=== PATIENT | male | born 1975 | race Caucasian/White ===

== ENCOUNTER 2020-06-19 13:36 | Outpatient (REF) | payer OTHER, SELFPAY | END 2020-06-19 13:37 | disposition home or self-care (01) | LOC: HO.LAB 13:36 | PROVIDERS: Visit Provider Internal Medicine | DX: Z20.828 Contact with and (suspected) exposure to other viral communicable diseases (principal) | CPT/HCPCS: C9803; U0003 ==

== ENCOUNTER 2022-08-14 04:11 | Emergency (ER) | payer OTHER, SELFPAY ==
--- NOTE | ~2022-08-14 | CT_ITS ---
EXAMINATION: CT ABDOMEN AND PELVIS WITH CONTRAST CLINICAL INFORMATION: Abdominal pain COMPARISON: None TECHNIQUE: Multidetector volumetric images were obtained from the superior aspect of the liver through the pubic symphysis following administration 100 mL of Omnipaque 350 intravenous contrast. Sagittal and coronal reformatted images were obtained on the technologist's workstation. Oral contrast: No This CT examination was performed using dose optimization techniques as appropriate, variously including the following: *Automated exposure control *Adjustment of mA and/or kV according to patient size (this includes techniques or standardized protocols for targeted exams where dose is matched to indication/reason for exam; i.e. extremities or head) *Use of iterative reconstruction technique DLP: 893 mGy-cm FINDINGS: LUNG BASES: The visualized lung bases are unremarkable. LIVER, GALLBLADDER, AND BILIARY TREE: The liver is normal in size, shape, and attenuation. No focal hepatic lesion or biliary ductal dilatation is present. The gallbladder is unremarkable with no evidence of radiopaque gallstones, gallbladder wall thickening, or obvious pericholecystic inflammatory changes. PANCREAS: Unremarkable. SPLEEN: Unremarkable. ADRENAL GLANDS: Unremarkable. KIDNEYS AND URETERS: The kidneys are normal in size, shape, and attenuation. No hydronephrosis or hydroureter. Right lower pole 0.4 cm calculus is 10 cm from the posterior axillary line. Additional right lower pole calculus also noted. There are 2 left lower pole calculi measuring up to 0.2 cm, 11 cm from the posterior axillary line. BLADDER: Unremarkable. GASTROINTESTINAL TRACT: The stomach is unremarkable. Normal caliber small bowel. No obstruction. No colonic wall thickening or inflammation. No free air or free fluid. ABDOMINAL WALL: No significant hernia is appreciated. Prior right lower abdominal hernia repair. LYMPH NODES: Normal. VASCULAR: Unremarkable. PELVIC VISCERA: The prostate and seminal vesicles are unremarkable. OSSEOUS STRUCTURES: Unremarkable. CT/CT abdomen pelvis w IV con IMPRESSION: 1. No acute findings in the abdomen or pelvis. No inflammatory changes. 2. Nonobstructing bilateral renal calculi. Fleischner guidelines were followed.
[2022-08-14 04:15] VITALS: BP 192/112; PULSE 95; RESP 20; TEMP 36.3; O2SAT 97; BMI 35.6
[2022-08-14 04:34] LABS: MANUAL DIFF FLAG NO
[2022-08-14 04:36] LABS: Basophils Percent Auto 0.3 % (0-2); Eosinophils Percent Auto 0.5 % (0-4); Hematocrit 47.5 % (42.0-52.0); Hemoglobin 16.2 g/dl (14.0-18.0); Imm Gran Abs Auto 0.02 X10*3/uL (0.00-0.03); Imm Gran Pct Auto 0.3 % (0.0-0.4); Lymphocytes Absolute Auto 1.6 X10*3/uL (1.2-4.9); Lymphocytes Percent Auto 24.5 % (20-40); Mean Corpuscular HGB Conc 34.1 g/dl (31.0-36.0); Mean Corpuscular Hemoglobin 28.3 pg (27.0-33.0); Mean Corpuscular Volume 82.9 fL (80.0-98.0); Mean Platelet Volume 8.9 fL (9.4-12.4); Monocytes Absolute Auto 0.7 X10*3/uL (0.1-1.2); Monocytes Percent Auto 11.1 % (2-11); Neutrophils Absolute Auto 4.2 x10*3/uL (2.0-8.3); Neutrophils Percent Auto 63.3 % (45-73); Platelet Count 211 X10*3/uL (160-400); Red Blood Count 5.73 X10*6/uL (4.60-5.80); Red Cell Distribution Width 13.2 % (11.0-16.0); White Blood Count 6.7 X10*3/uL (4.8-10.8)
[2022-08-14 04:37] LABS: Appearance Urine Clear; Color Urine Yellow; Glucose Urine UA Negative (Negative); Leukocyte Esterase Urine Negative (Negative); Nitrite Urine Negative (Negative); PH 6.5 (5.0-9.0); Specific Gravity - Urine 1.015 (1.005-1.025); UMIC TRIGGER UACC YES; Urine Blood Small (1+) (Negative); Urine Ketones Negative (Negative); Urine Protein Trace mg/dL (Neg-Trace)
[2022-08-14 04:42] LABS: Bacteria Urine None Seen (None Seen); Hyaline Casts Urine 0-2 /LPF (0-2); Squamous Epithelial Cell Urine 0-2 /HPF (0-2); WBC Urine 0-5 /HPF (0-5)
--- OUTSIDE RECORDS SUMMARY | 2022-08-14 04:45 | XMS_ITS ---
:1975 Author Care Team Providers Name Role Phone ADEEL LOU MD Primary Care Provider [phone] [facility] Fiber Optic Technician [phone] BERNARD CARMICHAEL MD General Surgeon [phone] Allergies Code Code System Name Reaction Severity Status Onset NKDA ? Medications Name Status Start Date Stop Date ? ? Afluria Qd 2019- (36 mos up)(PF)60 mcg (15 mcg x4)/0.5 Complet ed ? 07/16/2020 mL IM syringe amoxicillin 875 mg tablet Completed ? 2017 azithromycin 250 mg tablet Completed ? 07/16 Baby Aspirin Completed ? 12/29/2018 1 tab daily orally lisinopril 10 mg-hydrochlorothiazide 12.5 mg tablet Active ? Not available TAKE 1 TABLET BY MOUTH EVERY DAY Mucinex DM 60 mg-1,200 mg tablet,extended release 12 hr Complete d ? 09/17/2017 Take 1 tablet twice a day by oral route for 7 days. multivitamin Active ? Not available 1 tab daily by mouth oseltamivir 75 mg capsule Completed ? 2019 oxycodone 5 mg tablet Completed ? 12/29/2018 Paxlovid 300 mg (150 mg x 2)-100 mg tablets in a dose pack (EUA) Active ? Not available TAKE 3 TABLETS BY MOUTH TWICE A DAY DIRECTED FOR 5 DAYS DIRECTED ON PACKAGE penicillin V potassium 500 mg tablet Completed ? 06/19/2016 Readi-Cat 2 2 % (w/v) oral suspension Completed ? 12/29/2018 Readi-Cat 2 2.1 % (w/v), 2.0 % (w/w) oral suspension Completed ? 12/29/2018 Take 450 mL twice a day by oral route as directed for 1 day. Stool Softener 100 mg capsule Completed ? Vitamin D3 25 mcg (1,000 unit) capsule Active ? Not available Take 1 capsule every day by oral route. Problems Name Status Onset Date Source ? Vitamin D Deficiency Active 06/24/2018 ? Body Mass Index 30+ - Obesity Unknown 06/24/2018 ? Hypercholesterolemia Active 08/01/2018 ? 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 Kidney Stone Active 09/05/2018 ? Body Mass Index 30+ - Obesity Active 07/16/2020 ? Albuminuria Unknown 07/18/2020 ? Increased Liver Function Unknown 07/18/2020 ? 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 Elevated Blood-pressure Reading without Diagnosis of Unknown 02/04/2021 ? Hypertension Essential Hypertension Active 04/15/2021 ? Hypercalcemia Active 04/16/2021 ? Hypercalcemia Unknown ? History Body Mass Index 30+ - Obesity Unknown ? En counter Superficial Thrombophlebitis Unknown ? 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 ? Blood in Urine Unknown ? Encounter Cervical Lymphadenopathy Unknown ? Encount er Procedures Date Name Performed by ? 12/14/2018 [facility] [employer] Hernia Repair Information not av ailable ? Hernia Repair Information not avai lable ? Appendectomy Information not avai lable 07/25/2015 Ultrasound, Renal/bladder [facility] (Ultrasound) [address], [place] [address] (Work Place) 07/28/2018 US, Abdomen [facility] (Ultrasound) [address] [place], [place] [address] (Work Place) 08/26/2018 CT, Abdomen + Pelvis, W/ Contrast Inform ation not available 04/15/2021 Electrocardiogram In-Office Order Internal Use Only DO Not Attach Compendium DO Not Attach Compendium Do Not Delete/merge [id number] Results Lab Results Date Name Specimen Result Interpretation Description Value Range Status Address ? 04/15/2021 Urinalysis, ? Appear/color ? ? F inal [facility] Complete Referenc e Laboratori es: [address], [place] ? ? ? Sp. Christmas 1.018 (1.0 Final [place] 02- Reference .030 Laboratori es: ) [address], [place] ? ? ? Urine pH 7.5 (5.0 Final [facility] -8.0 Reference ) Laboratori es: [address], [place] ? ? ? Urine negative (neg Final [facility] Albumin ) Reference Laboratori es: [address], [place] ? ? ? Urine negative (neg Final [facility] Glucose ) Reference Laboratori es: [address], [place] ? ? ? Urine negative (neg Final [facility] Ketones ) Reference Laboratori es: [address], [place] ? ? ? Urine negative (neg Final [facility] Bilirubin ) Referen ce Laboratori es: [address], [place] ? ? ? Urine negative (neg Final [facility] Hemoglobin ) Refere nce Laboratori es: [address], [place] ? ? ? Urine negative (neg Final [facility] Nitrite ) Reference Laboratori es: [address], [place] ? ? ? Urine negative (neg Final [facility] Leukocyte ) Referen ce Laboratori es: [address], [place] ? ? ? Urobilinogen normal (nor Final [place] mg/dL m) Reference mg/d Laboratori es: L [address], [place] ? ? ? Urine Wbcs <1 /hpf (0-5 Final [facility] ) Reference /hpf Laboratori es: [address], [place] ? ? ? Urine Rbcs 1 /hpf (0-3 Final [facility] ) Reference /hpf Laboratori es: [address], [place] ? ? ? Mucus slight ? Final [facility] /lpf Reference Laboratori es: [address], [place] 04/15/2021 CMP, Serum ? Glucose 96 mg/dL (70- Final [facility] or Plasma 99) Referen ce mg/d Laboratori es: L [address], [place] ? ? ? Bun 11 mg/dL (6-2 Final [facility] 0) Reference mg/d Laboratori es: L [address], [place] ? ? ? Creatinine 0.8 mg/dL (0.7 Final [facility] -1.2 Reference ) Laboratori es: mg/d [address], [place] ? ? ? Sodium 141 mmol/L (133 Final [facility] -145 Reference ) Laboratori es: mmol [address], [place] ? ? ? Potassium 4.4 mmol/L (3.6 Final [facility] -5.2 Reference ) Laboratori es: mmol [address], [place] ? ? ? Chloride 102 mmol/L (98- Final [place] 107) Reference mmol Laboratori es: /L [address], [place] ? ? ? Bicarbonate 29 mmol/L (22- Final [facility] 29) Reference mmol Laboratori es: /L [address], [place] ? ? ? Anion Gap 10 (4-1 Final [facility] 7) Reference Laboratori es: [address], [place] ? ? High Albumin 4.9 gm/dL (3.4 Final [facility] -4.8 Reference ) Laboratori es: gm/d [address], [place] ? ? High Calcium 10.8 mg/dL (8.6 Final [facility] -10. Reference 5) Laboratori es: mg/d [address], [place] ? ? ? Bilirubin,to 0.6 mg/dL (0-1 Final [facility] linda .2) Reference mg/d Laboratori es: L [address], [place] ? ? ? Total 7.8 gm/dL (6.2 Final [facility] Protein -8.2 Reference ) Laboratori es: gm/d [address], [place] ? ? ? Ag Ratio 1.7 ? Final [facility] Reference Laboratori es: [address], [place] ? ? ? Ast 24 U/L (0-4 Final [facility] 0) Reference U/L Laboratori es: [address], [place] ? ? ? Alk Phos 68 U/L (40- Final [facility] 129) Reference U/L Laboratori es: [address], [place] ? ? ? Alt 38 U/L (0-4 Final [facility] 1) Reference U/L Laboratori es: [address], [place] ? ? ? Est GFR Non 107 ? Final [facility] mL/min/1.7 Refer ence [place] 3 M2 Laborato sang: [address], [place] ? ? ? Est GFR 124 ? Final [facility] mL/min/1.7 Refer ence [place] 3 M2 Laborato sang: [address], [place] 07/16/2020 CBC W/ Auto ? Wbc 6.2 K/mm3 (4.0 Final [place] Diff -11. Reference 0) Laboratori es: K/mm [address], [place] ? ? ? Rbc 5.53 M/mm3 (4.7 Final [facility] 0-6. Reference 10) Laboratori es: M/mm [address], [place] ? ? ? Hgb 16.0 gm/dL (13. Final [facility] 7-17 Reference .1) Laboratori es: gm/d [address], [place] ? ? ? Hct 47.8 % (40. Final [facility] 5-50 Reference .0) Laboratori es: % [address], [place] ? ? ? Mcv 86.4 fL (80. Final [facility] 0-94 Reference .0) Laboratori es: fL [address], [place] ? ? ? Mch 28.9 pg (27. Final [facility] 0-34 Reference .0) Laboratori es: pg [address], [place] ? ? ? Mchc 33.5 g/dL (33. Final [facility] 0-37 Reference .0) Laboratori es: g/dL [address], [place] ? ? ? Plt 236 K/mm3 (150 Final [facility] -460 Reference ) Laboratori es: K/mm [address], [place] ? ? ? RDW-SD 42.8 fL (<47 Final [facility] .0) Reference fL Laboratori es: [address], [place] ? ? ? Mpv 9.6 fL (9.4 Final [facility] -12. Reference 4) Laboratori es: fL [address], [place] ? ? ? Automated 0.0 #/100 ? Final [facility] NRBC WBC's Reference Laboratori es: [address], [place] ? ? ? Abs. NRBC 0.0 K/mm3 ? Final [facility] Reference Laboratori es: [address], [place] ? ? ? Neut # 3.2 K/mm3 (1.3 Final [facility] -7.0 Reference ) Laboratori es: K/mm [address], [place] ? ? ? Lymph # 2.4 K/mm3 (0.8 Final [facility] -3.1 Reference ) Laboratori es: K/mm [address], [place] ? ? ? [place]# 0.5 K/mm3 (0.4 Final [facility] -1.3 Reference ) Laboratori es: K/mm [address], [place] ? ? ? Eo # 0.1 K/mm3 (0.0 Final [facility] -0.4 Reference ) Laboratori es: K/mm [address], [place] ? ? ? Baso # 0.0 K/mm3 (0.0 Final [facility] -0.1 Reference ) Laboratori es: K/mm [address], [place] ? ? ? Abs. Imm 0.0 K/mm3 ? Final [facility] Gran Reference Laboratori es: [address], [place] ? ? ? Neut 51.6 % (44- Final [facility] 76) Reference % Laboratori es: [address], [place] ? ? ? Lymph 38.4 % (15- Final [facility] 43) Reference % Laboratori es: [address], [place] ? ? ? Monocyte 8.2 % (4.5 Final [facility] -10. Reference 5) % Laboratori es: [address], [place] ? ? ? Eo 1.0 % (0-6 Final [facility] ) % Reference Laboratori es: [address], [place] ? ? ? Baso 0.5 % (0-2 Final [facility] ) % Reference Laboratori es: [address], [place] ? ? ? Imm Gran 0.3 % ? Final [facility] Reference Laboratori es: [address], [place] 07/16/2020 Urinalysis, ? Appear/color ? ? F inal [facility] Complete Referenc e Laboratori es: [address], [place] ? ? ? Sp. Christmas 1.026 (1.0 Final [place] 02-1 Reference .030 Laboratori es: ) [address], [place] ? ? ? Urine pH 6.0 (5.0 Final [facility] -8.0 Reference ) Laboratori es: [address], [place] ? ? ABNORMAL Urine 1+ (neg Final [facility] Albumin ) Reference Laboratori es: [address], [place] ? ? ? Urine negative (neg Final [facility] Glucose ) Reference Laboratori es: [address], [place] ? ? ? Urine negative (neg Final [facility] Ketones ) Reference Laboratori es: [address], [place] ? ? ? Urine negative (neg Final [facility] Bilirubin ) Referen ce Laboratori es: [address], [place] ? ? ABNORMAL Urine 1+ (neg Final [facility] Hemoglobin ) Refere nce Laboratori es: [address], [place] ? ? ? Urine negative (neg Final [facility] Nitrite ) Reference Laboratori es: [address], [place] ? ? ? Urine negative (neg Final [facility] Leukocyte ) Referen ce Laboratori es: [address], [place] ? ? ? Urobilinogen normal (nor Final [place] mg/dL m) Reference mg/d Laboratori es: L [address], [place] ? ? ? Urine Wbcs <1 /hpf (0-5 Final [facility] ) Reference /hpf Laboratori es: [address], [place] ? ? ? Urine Rbcs 1 /hpf (0-3 Final [facility] ) Reference /hpf Laboratori es: [address], [place] ? ? ABNORMAL Bacteria slight hpf (neg Final [facility] ) Reference hpf Laboratori es: [address], [place] ? ? ? Mucus moderate ? Final [facility] /lpf Reference Laboratori es: [address], [place] ? ? ? Squamous 5 /hpf (0-8 Final [facility] Epith ) Reference /hpf Laboratori es: [address], [place] 07/16/2020 CMP, Serum High Glucose 102 mg/dL (70- Judith l [facility] or Plasma 99) Referen ce mg/d Laboratori es: L [address], [place] ? ? ? Bun 12 mg/dL (6-2 Final [facility] 0) Reference mg/d Laboratori es: L [address], [place] ? ? ? Creatinine 0.8 mg/dL (0.7 Final [facility] -1.2 Reference ) Laboratori es: mg/d [address], [place] ? ? ? Sodium 140 mmol/L (133 Final [facility] -145 Reference ) Laboratori es: mmol [address], [place] ? ? ? Potassium 4.0 mmol/L (3.6 Final [facility] -5.2 Reference ) Laboratori es: mmol [address], [place] ? ? ? Chloride 106 mmol/L (98- Final [place] 107) Reference mmol Laboratori es: /L [address], [place] ? ? ? Bicarbonate 24 mmol/L (22- Final [facility] 29) Reference mmol Laboratori es: /L [address], [place] ? ? ? Anion Gap 10 (4-1 Final [facility] 7) Reference Laboratori es: [address], [place] ? ? ? Albumin 4.7 gm/dL (3.4 Final [facility] -4.8 Reference ) Laboratori es: gm/d [address], [place] ? ? ? Calcium 10.4 mg/dL (8.6 Final [facility] -10. Reference 5) Laboratori es: mg/d [address], [place] ? ? ? Bilirubin,to 0.4 mg/dL (0-1 Final [facility] linda .2) Reference mg/d Laboratori es: L [address], [place] ? ? ? Total 7.4 gm/dL (6.2 Final [facility] Protein -8.2 Reference ) Laboratori es: gm/d [address], [place] ? ? ? Ag Ratio 1.7 ? Final [facility] Reference Laboratori es: [address], [place] ? ? ? Ast 27 U/L (0-4 Final [facility] 0) Reference U/L Laboratori es: [address], [place] ? ? ? Alk Phos 62 U/L (40- Final [facility] 129) Reference U/L Laboratori es: [address], [place] ? ? High Alt 53 U/L (0-4 Final [facility] 1) Reference U/L Laboratori es: [address], [place] ? ? ? Est GFR Non 111 ? Final [facility] mL/min/1.7 Refer ence [place] 3 M2 Laborato sang: [address], [place] ? ? ? Est GFR 129 ? Final [facility] mL/min/1.7 Refer ence [place] 3 M2 Laborato sang: [address], [place] 07/16/2020 Lipid Panel, High Cholesterol, 227 mg/dL (<20 Final [facility] Serum Total 0) Reference mg/d Laboratori es: L [address], [place] ? ? ? Triglyceride 147 mg/dL (<15 Final [facility] 0) Reference mg/d Laboratori es: L [address], [place] ? ? ? HDL Chol 47 mg/dL (>39 Final [facility] ) Reference mg/d Laboratori es: L [address], [place] ? ? High LDL 151 mg/dL (0-1 Final [facility] Cholesterol, 30) Refe rence Calculated mg/d Labora tories: L [address], [place] ? ? High Non HDL 180 mg/dL (<16 Final [facility] Cholesterol 0) Refer ence (Calc) mg/d Laboratori es: L [address], [place] 10/05/2019 Rapid Flu ? Flu a negative ? ? I n-Office (A+B) Order: Internal U se Only DO No t Attach Compendium DO Not Attach Compendium , Do Not Delete/juan ge ? ? ? Flu B negative ? ? In-Offic e Order: Internal U se Only DO No t Attach Compendium DO Not Attach Compendium , Do Not Delete/juan ge 07/28/2018 CBC W/ Auto ? Wbc 7.9 K/mm3 (4.0 Final [place] Diff -11. Reference 0) Laboratori es: K/mm [address], [place] ? ? ? Rbc 5.56 M/mm3 (4.7 Final [facility] 0-6. Reference 10) Laboratori es: M/mm [address], [place] ? ? ? Hgb 16.0 gm/dL (13. Final [place] [place] 7-16 Reference .5) Laboratori es: gm/d [address], [place] ? ? ? Hct 48.2 % (40. Final [place] 5-48 Reference .5) Laboratori es: % [address], [place] ? ? ? Mcv 86.7 fL (80. Final [place] [place] 0-94 Reference .0) Laboratori es: fL [address], [place] ? ? ? Mch 28.8 pg (27. Final [place] 0-34 Reference .0) Laboratori es: pg [address], [place] ? ? ? Mchc 33.2 g/dL (33. Final [facility] 0-37 Reference .0) Laboratori es: g/dL [address], [place] ? ? ? Plt 265 K/mm3 (150 Final [facility] -460 Reference ) Laboratori es: K/mm [address], [place] ? ? ? RDW-SD 41.3 fL (<47 Final [facility] .0) Reference fL Laboratori es: [address], [place] ? ? Low Mpv 9.3 fL (9.4 Final [place] -12. Reference 4) Laboratori es: fL [address], [place] ? ? ? Automated 0.0 #/100 ? Final [facility] NRBC WBC's Reference Laboratori es: [address], [place] ? ? ? Abs. NRBC 0.0 K/mm3 ? Final [facility] Reference Laboratori es: [address], [place] 07/28/2018 CMP, Serum ? Glucose 90 mg/dL (70- Final [facility] or Plasma 99) Referen ce mg/d Laboratori es: L [address], [place] ? ? ? Bun 11 mg/dL (6-2 Final [facility] 0) Reference mg/d Laboratori es: L [address], [place] ? ? ? Creatinine 0.9 mg/dL (0.7 Final [facility] -1.2 Reference ) Laboratori es: mg/d [address], [place] ? ? ? Sodium 140 mmol/L (133 Final [facility] -145 Reference ) Laboratori es: mmol [address], [place] ? ? ? Potassium 4.3 mmol/L (3.6 Final [facility] -5.2 Reference ) Laboratori es: mmol [address], [place] ? ? ? Chloride 102 mmol/L (98- Final [place] 107) Reference mmol Laboratori es: /L [address], [place] ? ? ? Bicarbonate 27 mmol/L (22- Final [facility] 29) Reference mmol Laboratori es: /L [address], [place] ? ? ? Anion Gap 11 (4-1 Final [facility] 7) Reference Laboratori es: [address], [place] ? ? ? Albumin 4.6 gm/dL (3.4 Final [facility] -4.8 Reference ) Laboratori es: gm/d [address], [place] ? ? ? Calcium 10.3 mg/dL (8.6 Final [facility] -10. Reference 5) Laboratori es: mg/d [address], [place] ? ? ? Bilirubin,to 0.8 mg/dL (0-1 Final [facility] linda .2) Reference mg/d Laboratori es: L [address], [place] ? ? ? Total 7.7 gm/dL (6.2 Final [facility] Protein -8.2 Reference ) Laboratori es: gm/d [address], [place] ? ? ? Ag Ratio 1.5 ? Final [facility] Reference Laboratori es: [address], [place] ? ? ? Ast 30 U/L (0-3 Final [facility] 8) Reference U/L Laboratori es: [address], [place] ? ? ? Alk Phos 60 U/L (40- Final [facility] 129) Reference U/L Laboratori es: [address], [place] ? ? High Alt 42 U/L (0-4 Final [facility] 1) Reference U/L Laboratori es: [address], [place] ? ? ? Est GFR Non 106 ? Final [facility] mL/min/1.7 Refer ence [place] 3 M2 Laborato sang: [address], [place] ? ? ? Est GFR 123 ? Final [facility] mL/min/1.7 Refer ence [place] 3 M2 Laborato sang: [address], [place] 07/28/2018 Lipid Panel, High Cholesterol, 204 mg/dL (<20 Final [facility] Serum Total 0) Reference mg/d Laboratori es: L [address], [place] ? ? ? Triglyceride 102 mg/dL (<15 Final [facility] 0) Reference mg/d Laboratori es: L [address], [place] ? ? ? HDL Chol 51 mg/dL (>39 Final [facility] ) Reference mg/d Laboratori es: L [address], [place] ? ? High LDL 133 mg/dL (0-1 Final [facility] Cholesterol, 30) Refe rence Calculated mg/d Labora tories: L [address], [place] ? ? ? Non HDL 153 mg/dL (<16 Final [facility] Cholesterol 0) Refer ence (Calc) mg/d Laboratori es: L [address], [place] 07/28/2018 Vitamin D, ? 25OH Vitamin 23.3 NG/mL (20- Final [facility] 25-Hydroxy, D 50) Refer ence Total, Serum NG/m Labo ratories: L [address], [place] 09/17/2017 Rapid Flu Nose ? Flu a negative ? ? I n-Office (A+B) (nasa Order: l Internal U se passa Only DO No t ge) Attach Compendium DO Not Attach Compendium , Do Not Delete/juan ge ? ? Nose ? Flu B negative ? ? In-Offic e (nasa Order: l Internal U se passa Only DO No t ge) Attach Compendium DO Not Attach Compendium , Do Not Delete/juan ge 07/25/2015 Urinalysis, ? Appear/color ? ? F inal [facility] Complete Referenc e Laboratori es: [address], [place] ? ? ? Sp. Christmas 1.011 (1.0 Final [facility] 02- Reference .030 Laboratori es: ) [address], [place] ? ? ? Urine pH 6.0 (4.0 Final [facility] -8.0 Reference ) Laboratori es: [address], [place] ? ? ABNORMAL Urine 1+ (neg Final [facility] Albumin ) Reference Laboratori es: [address], [place] ? ? ? Urine negative (neg Final [facility] Glucose ) Reference Laboratori es: [address], [place] ? ? ? Urine negative (neg Final [facility] Ketones ) Reference Laboratori es: [address], [place] ? ? ? Urine negative (neg Final [facility] Bilirubin ) Referen ce Laboratori es: [address], [place] ? ? ABNORMAL Urine 3+ (neg Final [facility] Hemoglobn ) Referen ce Laboratori es: [address], [place] ? ? ? Urine negative (neg Final [facility] Nitrite ) Reference Laboratori es: [address], [place] ? ? ? Urine negative (neg Final [facility] Leukocyte ) Referen ce Laboratori es: [address], [place] ? ? ? Urobilinogen normal (nor Final [place] mg/dL m) Reference mg/d Laboratori es: L [address], [place] ? ? ? Urine WBC's 2 /hpf (0-5 Final [facility] ) Reference /hpf Laboratori es: [address], [place] ? ? High Urine RBC's 56 /hpf (<3) Final [place] /hpf Reference Laboratori es: [address], [place] ? ? ? Mucus slight ? Final [facility] /lpf Reference Laboratori es: [address], [place] 07/25/2015 Culture, ? Specimen urine ? Final [facility] Urine Description clean Refer ence catch/mids Labora tories: tream bd [address], [place] ? ? ? Special none ? Final [facility] Requests Referenc e Laboratori es: [address], [place] ? ? ? Culture no growth ? Final [facility] Reference Laboratori es: [address], [place] ? ? ? Report final ? Final [facility] Status 07/27/2015 Refere nce Laboratori es: [address], [place] 07/03/2015 CBC W/ Auto ? Wbc 6.0 K/mm3 (4.0 Final [place] [place] Diff -11. Reference 0) Laboratori es: K/mm [address], [place] ? ? ? Rbc 5.07 M/mm3 (4.7 Final [facility] 0-6. Reference 10) Laboratori es: M/mm [address], [place] ? ? ? Hgb 14.7 gm/dL (14. Final [facility] 0-18 Reference .0) Laboratori es: gm/d [address], [place] ? ? ? Hct 44.2 % (42. Final [facility] 0-52 Reference .0) Laboratori es: % [address], [place] ? ? ? Mcv 87.2 fL (80. Final [facility] 0-94 Reference .0) Laboratori es: fL [address], [place] ? ? ? Mch 29.0 pg (27. Final [facility] 0-34 Reference .0) Laboratori es: pg [address], [place] ? ? ? Mchc 33.3 % (33. Final [facility] 0-37 Reference .0) Laboratori es: % [address], [place] ? ? ? Plt 231 K/mm3 (150 Final [facility] -460 Reference ) Laboratori es: K/mm [address], [place] ? ? ? RDW-SD 40.7 fL (<47 Final [facility] .0) Reference fL Laboratori es: [address], [place] ? ? ? Mpv 9.8 fL (9.4 Final [facility] -12. Reference 4) Laboratori es: fL [address], [place] ? ? ? Automated 0.0 #/100 ? Final [place] NRBC WBC's Reference Laboratori es: [address], [place] ? ? ? Abs. NRBC 0.0 K/mm3 ? Final [place] Reference Laboratori es: [address], [place] ? ? ? Neut # 3.5 K/mm3 (1.3 Final [facility] -7.0 Reference ) Laboratori es: K/mm [address], [place] ? ? ? Lymph # 1.9 K/mm3 (0.8 Final [facility] -3.1 Reference ) Laboratori es: K/mm [address], [place] ? ? ? [place]# 0.6 K/mm3 (0.4 Final [facility] -1.3 Reference ) Laboratori es: K/mm [address], [place] ? ? ? Eo # 0.1 K/mm3 (0.0 Final [facility] -0.4 Reference ) Laboratori es: K/mm [address], [place] ? ? ? Baso # 0.0 K/mm3 (0.0 Final [facility] -0.1 Reference ) Laboratori es: K/mm [address], [place] ? ? ? Abs. Imm 0.0 K/mm3 ? [facility] Labor[facility]: [address], [place] ? ? ? Neut 57.7 % (44- Final [facility] 76) Reference % Laboratori es: [address], [place] ? ? ? Lymph 31.5 % (15- Final [facility] 43) Reference % Laboratori es: [address], [place] ? ? ? Monocyte 9.3 % (4.5 Final [facility] -10. Reference 5) % Laboratori es: [address], [place] ? ? ? Eo 1.0 % (0-6 Final [facility] ) % Reference Laboratori es: [address], [place] ? ? ? Baso 0.3 % (0-2 Final [facility] ) % Reference Laboratori es: [address], [place] ? ? ? Imm Gran 0.2 % (0.0 Final [facility] -0.6 Reference ) % Laboratori es: [address], [place] 07/03/2015 CMP, Serum ? Glucose 86 mg/dL (70- Final [facility] or Plasma 99) Referen ce mg/d Laboratori es: L [address], [place] ? ? ? Bun 7 mg/dL (6-2 Final [facility] 0) Reference mg/d Laboratori es: L [address], [place] ? ? ? Creatinine 0.9 mg/dL (0.7 Final [facility] -1.2 Reference ) Laboratori es: mg/d [address], [place] ? ? ? Sodium 142 mmol/L (133 Final [facility] -145 Reference ) Laboratori es: mmol [address], [place] ? ? ? Potassium 4.2 mmol/L (3.6 Final [facility] -5.2 Reference ) Laboratori es: mmol [address], [place] ? ? ? Chloride 104 mmol/L (98- Final [place] state 107) Reference mmol Laboratori es: /L [address], [place] ? ? ? Bicarbonate 27 mmol/L (22- Final [facility] 29) Reference mmol Laboratori es: /L [address], [place] ? ? ? Anion Gap 11 (4-1 Final [facility] 7) Reference Laboratori es: [address], [place] ? ? ? Albumin 4.4 gm/dL (3.4 Final [facility] -4.8 Reference ) Laboratori es: gm/d [address], [place] ? ? ? Calcium 9.9 mg/dL (8.6 Final [facility] -10. Reference 5) Laboratori es: mg/d [address], [place] ? ? ? Bilirubin,to 0.6 mg/dL (0-1 Final [facility] linda .2) Reference mg/d Laboratori es: L [address], [place] ? ? ? Total 7.4 gm/dL (6.2 Final [facility] Protein -8.2 Reference ) Laboratori es: gm/d [address], [place] ? ? ? Ag Ratio 1.5 ? Final [facility] Reference Laboratori es: [address], [place] ? ? ? Ast 23 U/L (0-3 Final [facility] 8) Reference U/L Laboratori es: [address], [place] ? ? ? Alk Phos 57 U/L (40- Final [facility] 129) Reference U/L Laboratori es: [address], [place] ? ? ? Alt 34 U/L (0-4 Final [facility] 1) Reference U/L Laboratori es: [address], [place] ? ? ? Est GFR Non >60 ? Final [facility] mL/min/1.7 Refer ence [place] 3 M2 Laborato sang: [address], [place] ? ? ? Est GFR >60 ? Final [facility] mL/min/1.7 Refer ence [place] 3 M2 Laborato sang: [address], [place] 07/03/2015 Lipid Panel, ? Cholesterol, 175 mg/dL (<20 Final [facility] Serum Total 0) Reference mg/d Laboratori es: L [address], [place] ? ? ? Triglyceride 114 mg/dL (<15 Final [facility] 0) Reference mg/d Laboratori es: L [address], [place] ? ? ? HDL Chol 42 mg/dL (>39 Final [facility] ) Reference mg/d Laboratori es: L [address], [place] ? ? ? LDL 110 mg/dL (0-1 Final [facility] Cholesterol, 30) Refe rence Calculated mg/d Labora tories: L [address], [place] ? ? ? Non HDL 133 mg/dL (<16 Final [facility] Cholesterol 0) Refer ence (Calc) mg/d Laboratori es: L [address], [place] 07/03/2015 Vitamin D, ? 25OH Vitamin 22.1 NG/mL (20- Final [facility] 25-Hydroxy, D 50) Refer ence Total, Serum NG/m Labo ratories: L [address], [place] ? Urinalysis, ? Leukocytes Trace ? ? In-Office Dipstick Order: Internal U se Only DO No t Attach Compendium DO Not Attach Compendium , Do Not Delete/juan ge ? ? ? Nitrite negative ? ? In-Off ice Order: Internal U se Only DO No t Attach Compendium DO Not Attach Compendium , Do Not Delete/juan ge ? ? ? Urobilinogen .2 ? ? In- Office Order: Internal U se Only DO No t Attach Compendium DO Not Attach Compendium , Do Not Delete/juan ge ? ? ? Protein Trace ? ? In-Offic e Order: Internal U se Only DO No t Attach Compendium DO Not Attach Compendium , Do Not Delete/juan ge ? ? ? Ph 6.0 ? ? In-Office Order: Internal U se Only DO No t Attach Compendium DO Not Attach Compendium , Do Not Delete/juan ge ? ? ? Blood Large ? ? In-Office Order: Internal U se Only DO No t Attach Compendium DO Not Attach Compendium , Do Not Delete/juan ge ? ? ? Specific 1.015 ? ? In-Offi ce Christmas Order: Internal U se Only DO No t Attach Compendium DO Not Attach Compendium , Do Not Delete/juan ge ? ? ? Ketone Negative ? ? In-Offi ce Order: Internal U se Only DO No t Attach Compendium DO Not Attach Compendium , Do Not Delete/juan ge ? ? ? Bilirubin Negative ? ? In-O ffice Order: Internal U se Only DO No t Attach Compendium DO Not Attach Compendium , Do Not Delete/juan ge ? ? ? Glucose Negative ? ? In-Off ice Order: Internal U se Only DO No t Attach Compendium DO Not Attach Compendium , Do Not Delete/juan ge ? ? ? Appearance Clear ? ? In-Of fice Order: Internal U se Only DO No t Attach Compendium DO Not Attach Compendium , Do Not Delete/juan ge ? ? ? Color Dark ? ? In-Office Yellow Order: Internal U se Only DO No t Attach Compendium DO Not Attach Compendium , Do Not Delete/juan ge Past Encounters Encounter Date Diagnosis Provider 07/16/2022 Covid-19 Pineda Chavez MD: [address], [place] [address], Ph. 07/21/2021 Adult Health Examination; Essential Adeel Lou MD: [address] Hypertension; Hypercalcemia; [facility] [address], [place], [place] Hypercholesterolemia; Hepatitis C [phone], Ph. Screening; Obesity; Body Mass Index 30+ - Obesity 04/15/2021 Essential Hypertension Adeel Lou MD: [address] [facility] [address], [place] [address], Ph. Social History Tobacco Smoking Status Never Smoker Vaccine List Vaccine Type COVID-19, mRNA, LNP-S, bivalent booster, PF, 30 mcg/0.3 mL dose (Pfizer-BioNTech) 05/20/2022?0.3 ML COVID-19, mRNA, LNP-S, PF, 100 mcg/0.5 m L dose (Moderna) 06/24/2021 COVID-19, mRNA, LNP-S, PF, 30 mcg/0.3 mL dose (Pfizer-BioNTech) 10/26/2020 11/18/2020 influenza, high dose seasonal 06/07/2015 Influenza, injectable, MDCK, preservativ e free, quadrivalent 05/20/2022?0.5 ML influenza, injectable, quadrivalent, pre servative free 06/19/2016?0.5 mL 06/23/2017?0.5 06/24/2018?0.5 mL 07/14/2019?0.5 05/23/2020 06/24/2021 Tdap 06/23/2017?0.5 mL Plan of Care Reminders Provider Appointments None recorded. ? ? Lab None recorded. ? ? Referral None recorded. ? ? Procedures None recorded. ? ? Surgeries None recorded. ? ? Imaging None recorded. ? ? Vitals 07/16/2022 03:20PM [email or web address] Height 6 ft 3 in 07/21/2021 09:00AM PE EST Height Weight BMI Blood Pressure 6 ft 3 in 269 lbs 33.6 kg/m2 119/75 mm[Hg] 04/15/2021 11:30AM FOLLOW UP Height Weight BMI Blood Pressure 6 ft 3 in 264 lbs 33 kg/m2 116/75 mm[Hg] 02/04/2021 02:45PM FOLLOW UP Height Weight BMI Blood Pressure 6 ft 3 in 279 lbs 16 oz 35 kg/m2 (1) 148/90 mm[H g] (2) 148/106 mm[H g] 07/16/2020 09:00AM PE EST Height Weight BMI Blood Pressure 6 ft 3 in 281 lbs 35.1 kg/m2 (1) 145/93 mm[H g] (2) 135/86 mm[Hg ] 10/05/2019 02:45PM URGENT Height Weight BMI Blood Pressure 6 ft 3 in 274 lbs 34.2 kg/m2 136/86 mm[Hg] 07/14/2019 01:45PM PE EST Height Weight BMI Blood Pressure 6 ft 3 in 273 lbs 6 oz 34.2 kg/m2 123/77 mm[Hg] 12/29/2018 09:00AM FOLLOW UP Height Weight BMI Blood Pressure 6 ft 3 in 253 lbs 4 oz 31.7 kg/m2 128/86 mm[Hg] 07/28/2018 10:00AM URGENT Height Weight BMI Blood Pressure 6 ft 3 in 257 lbs 16 oz 32.2 kg/m2 133/82 mm[Hg] 06/24/2018 10:15AM PE EST Height Weight BMI Blood Pressure 6 ft 3 in 261 lbs 32.6 kg/m2 134/89 mm[Hg] 09/17/2017 10:45AM URGENT Height Weight BMI Blood Pressure 6 ft 3 in 261 lbs 32.6 kg/m2 144/101 mm[Hg] 09/10/2017 10:30AM URGENT Height Weight BMI Blood Pressure 6 ft 3 in 265 lbs 33.1 kg/m2 138/85 mm[Hg] 06/23/2017 09:15AM PE EST Height Weight BMI Blood Pressure 6 ft 3 in 265 lbs 33.1 kg/m2 129/83 mm[Hg] 12/16/2016 09:15AM FOLLOW UP Height Weight BMI Blood Pressure 6 ft 3 in 256 lbs 32 kg/m2 (1) 127/78 mm[H g] (2) 120/80 mm[Hg ] 11/30/2016 09:00AM UV30 Height Weight BMI Blood Pressure 6 ft 3 in 255 lbs 8 oz 31.9 kg/m2 138/83 mm[Hg] 06/19/2016 09:00AM PE EST Height Weight BMI Blood Pressure 6 ft 3 in 254 lbs 16 oz 31.9 kg/m2 144/88 mm[Hg] 10/18/2015 11:30AM FOLLOW UP Height Weight BMI Blood Pressure 6 ft 3 in 251 lbs 31.4 kg/m2 133/89 mm[Hg] 08/22/2015 09:00AM FOLLOW UP Height Weight BMI Blood Pressure 6 ft 3 in 253 lbs 31.6 kg/m2 130/89 mm[Hg] 08/05/2015 09:15AM FOLLOW UP Height Weight BMI Blood Pressure 6 ft 3 in 254 lbs 31.7 kg/m2 132/86 mm[Hg] 07/25/2015 10:45AM URGENT Height Weight BMI Blood Pressure 6 ft 3 in 254 lbs 31.7 kg/m2 118/76 mm[Hg] 07/24/2015 02:15PM URGENT Height Weight BMI Blood Pressure 6 ft 3 in 255 lbs 31.9 kg/m2 137/85 mm[Hg] 06/17/2015 01:00PM NEW PT Height Weight BMI Blood Pressure 6 ft 3 in 254 lbs 31.7 kg/m2 130/86 mm[Hg]
--- OUTSIDE RECORDS SUMMARY | 2022-08-14 04:45 | XMS_ITS | Encounter Summary ---
:1975 Author Care Team Providers Name Role Phone Adeel Salas MD Primary Care Provider [phone] Juan A Ortega MD General Surgeon [phone] [facility] Safety Engineer Pressure Vessels [phone] Reason for Visit upper respiratory symptoms; Phone/Video Visit Patient tested covid on 07/15/22 and is requesting treatment Assessment and Plan Assessment Note This service was provided using telemed icine. Patient consented to video & audio visit Patient was located in the [facility]. Provider was located in the office. No other persons participated in the tel emedicine visit except for the patient unless otherwise indicated here. {{}} Total time of visit was 14 minutes. 1. COVID-19 Discussed SE's and isolation recommenda tions for 5 days and returning to work if no fever and substantially improved. ? Paxlovid 300 mg (150 mg x 2)-100 mg t ablets in a dose pack (EUA) ? 10 things to do when you have covid-1 9 Discussion Note: None recorded. Plan of Care Reminders Provider Appointments Pe Est 08/26/2022 11:00AM Bryan pizano PA-C Lab None recorded. ? ? Referral None recorded. ? ? Procedures None recorded. ? ? Surgeries None recorded. ? ? Imaging None recorded. ? ? Medications Name Start Date ? ? lisinopril 10 mg-hydrochlorothiazide 12.5 mg tablet ? TAKE 1 TABLET BY MOUTH EVERY DAY multivitamin ? 1 tab daily by mouth Paxlovid 300 mg (150 mg x 2)-100 mg tablets in a dose pack (EUA) ? TAKE 3 TABLETS BY MOUTH TWICE A DAY DIRECTED FOR 5 DAYS DIRECTED ON PACKAGE Vitamin D3 25 mcg (1,000 unit) capsule ? Take 1 capsule every day by oral route. Medications Administered None recorded. Vitals Height 6 ft 3 in Results Lab Results None recorded. Allergies Code Code System Name Reaction Severity Onset NKDA ? ? ? Problems Name Status Onset Date Source ? Vitamin D Deficiency Active 06/24/2018 ? Hypercholesterolemia Active 08/01/2018 ? Kidney Stone Active 09/05/2018 ? Body Mass Index 30+ - Obesity Active 07/16/2020 ? 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 Essential Hypertension Active 04/15/2021 ? Hypercalcemia Active 04/16/2021 ? Varicose Veins of Lower Extremity Active ? ? Procedures Date Name Performed by ? 12/14/2018 [employer] Hernia Repair Information not av ailable ? Hernia Repair Information not avai lable ? Appendectomy Information not avai lable Vaccine List Vaccine Type COVID-19, mRNA, LNP-S, bivalent booster, PF, 30 mcg/0.3 mL dose ([employer]) 05/20/2022?0.3 ML COVID-19, mRNA, LNP-S, PF, 100 mcg/0.5 m L dose (Moderna) 06/24/2021 COVID-19, mRNA, LNP-S, PF, 30 mcg/0.3 mL dose ([employer]) 10/26/2020 11/18/2020 influenza, high dose seasonal 06/07/2015 Influenza, injectable, MDCK, preservativ e free, quadrivalent 05/20/2022?0.5 ML influenza, injectable, quadrivalent, pre servative free 06/19/2016?0.5 mL 06/23/2017?0.5 06/24/2018?0.5 mL 07/14/2019?0.5 05/23/2020 06/24/2021 Tdap 06/23/2017?0.5 mL Social History Tobacco Smoking Status Never Smoker What type of diet are you REGULAR following? Are you able to walk? YESWOREST Are you able to care for Y yourself? Are you currently employed? Y Notes: Box [employer] Have you served in the N ? How much tobacco do you chew? none Is blood transfusion acceptable Y in an emergency? What is your level of alcohol Occasional consumption? Which illicit or recreational none drugs have you used? Do you use your seat belt or Y car seat routinely? Are you passively exposed to N smoke? Do you or have you ever used N any other forms of tobacco or nicotine? To the best of your knowledge N have you been in close proximity to any individual who tested positive for COVID-19? Do you take precautions to Y prevent distracted driving? Seat belts used routinely Y Smoke alarm in home Y At what age did you start 0 smoking tobacco? How many children do you have? 3 Notes: 4 y/o old twins (Daisy, Ann), oldes t son (7 y/o Chavez) Do you have smoke and carbon Y monoxide detectors in your home? Have you or anyone in your N household had any of the following symptoms in the last 14 days: sore throat, cough, chills, body aches for unknown reasons, shortness of breath for unknown reasons, loss of smell, loss of taste, fever at or greater than 100 degrees Fahrenheit? *AWV ONLY* Are you presently N prescribed opioid medication by PCP or specialist? If YES -Provider assess the benefit for other, non-opioid pain therapies instead, even if the patient does not have OUD but is possibly at risk. Are you or anyone in your N household a health care provider or emergency responder? What was the date of your most 07/21/2021 recent tobacco screening? Do you use sunscreen routinely? Y Do you have an advance Y Notes: HCP/ Wif e-Ysacca directive? Do you or have you ever used Never used electronic e-cigarettes or vape? cigarettes Have you recently traveled to a N COVID-19 high risk area or gathering in the last 10 days? Do you use any illicit or N recreational drugs? When did you quit smoking? 0 Notes: n/a What is your exercise level? None How many years have you smoked 0 tobacco? How often do you need to have Never someone help you when you read instructions, pamphlets, or other written material from your doctor or pharmacy? Live alone or with others? with others Notes: and 3 children Do you or have you ever used Never used smokeless tobacco smokeless tobacco? Are you sexually active? Y What is your current pack 0 Notes: n/a years? Do you use protection during No sex? What is your level of caffeine Moderate Notes: coffee consumption? What is your occupation? [employer] Family History Relation Problem Onset Age of Age Notes Mother Diabetes mellitus (No Information) N/A (No No kamilah) Mother Hypertensive disorder (No Information) N/A (N o Notes) Mother Venous varices (No Information) N/A (No Notes ) Father Malignant tumor of lung (No Information) 60 (No Notes) Father Diabetes mellitus (No Information) N/A (No No kamilah) Sister Well adult (No Information) N/A (No Notes) Functional Status Unknown. Past Encounters Encounter Date Diagnosis Provider 07/16/2022 Covid-19 Pineda Chavez MD: [address] [phone], Ph. History of Present Illness Note: [age]y [age] sluggish 3 days ago. Then developed a cough, congestion and some mild fatigue. He denies f/c, MATA, sore throat or change in smell or taste. His also tested positive as did his twins but his older child did not. He went to [facility] to do a PCR test since he needs this for his work.Review of Systems: ROS as noted in the HPI Review of Systems None recorded. Physical Exam None recorded.
[2022-08-14 05:04] LABS: Alanine Aminotransferase 34 U/L (0-40); Albumin Level 4.3 g/dL (3.5-5.0); Alkaline Phosphatase 62 U/L (39-117); Anion Gap 12 (12-20); Aspartate Amino Transferase 20 U/L (5-37); Bilirubin Direct 0.2 mg/dL (0.0-0.5); Bilirubin Total 0.6 mg/dL (0.0-1.0); Blood Urea Nitrogen 7 mg/dL (9-16); Calcium 9.5 mg/dL (8.4-10.2); Carbon Dioxide 23 mmol/L (22-29); Chloride 107 mmol/L (96-108); Creatinine Clr Calc Pharmacy 166.8; Estimated Glomerular Filt Rate > 60; Glucose Random 109 mg/dL (60-115); Lipase 13 U/L (8-78); Potassium 3.6 mmol/L (3.3-5.1); Sodium 138 mmol/L (135-145); Total Protein 7.6 g/dL (6.5-8.0)
--- NOTE | 2022-08-14 05:15 | ED.ABDPAIN ---
HPI - Abdominal Pain General Chief Complaint: Abdominal Pain Stated Complaint: Abd pain Time Seen by Provider: 08/14/22 04:26 History of Present Illness HPI narrative: Patient is a 47-year-old male presents today with having abdominal pain. The pain started yesterday is bilateral lower quadrant. It is dull in nature. Associated with some diarrhea. Denies any urinary symptoms. No fever no chills no coughing or congestion or upper story symptoms. No history of vomiting. No nausea. Positive cramping. Positive previous history for hernia repair positive previous history of appendectomy. Patient from home. No travel history no new antibiotics. Related Data Allergies Allergy/AdvReac Type Severity Reaction Status Date / Time latex Allergy Rash Verified 08/14/22 04:19 Review of Systems Review of Systems Positive abdominal pain Positive diarrhea Yes all other systems are reviewed and are negative PMFSH Past Medical History Attestation statement: The following information was validated with the patient. Social History Social History Smoked in Last 30 Days: No Use of substances other than those prescribed or required for medical reasons: No Advance Directives: No Advance Directives Information Provided: Yes Physical Exam ED Vital Signs: Vital Signs - 24 hr 08/14/22 04:15 08/14/22 05:33 Temperature 97.3 F Pulse Rate 95 Respiratory Rate 20 Blood Pressure 192/112 H 152/100 H Pulse Oximetry 97 96 Oxygen Delivery Method Room Air Room Air BMI result Body Mass Index 35.6 Appearance: Alert. Oriented X3. No acute distress. Eyes: Pupils equal, round and reactive to light. ENT: Pharynx normal. Neck: Normal inspection. Neck supple. No lymph nodes noted. No crepitus CVS: Normal heart rate and rhythm. Pulses normal. Normal S1 and S2 Respiratory: No respiratory distress. Breath sounds normal. No Wheezing. No rales Abdomen: Mild lower quadrant tenderness no rebound or guarding. Skin: Skin warm and dry. Normal skin color. Normal skin turgor. Extremities: No lower extremity edema. Neurovascular intact to all extremities. No Lacerations. No Rash Neuro: Oriented X 3. No motor deficit. No sensory deficit. Moving all extermities. No slurred speech Medical Decision Making Medical Decision Making MDM Narrative: Patient's differential diagnosis include Differential Diagnosis Patient's differential diagnosis include bowel obstruction, colitis, diverticulitis. CT scan of the abdomen showed no evidence of obstruction. No evidence of diverticulitis or colitis. No kidney stone. Patient well-appearing labs are normal. Urine showed no signs of infection. He is in no distress. Repeat abdominal exam is soft nontender. Question mild gastroenteritis causing the diarrhea. Patient is in stable condition was discharged home Lab Data MDM Lab Attestation statement: I reviewed the patient's lab results. 08/14/22 04:28 08/14/22 04:28 Labs: Lab Results 08/14/22 08/14/22 08/14/22 Range/Units 04:28 04:28 04:28 WBC 6.7 (4.8-10.8) X10*3/uL RBC 5.73 (4.60-5.80) X10*6/uL Hgb 16.2 (14.0-18.0) g/dl Hct 47.5 (42.0-52.0) % MCV 82.9 (80.0-98.0) fL MCH 28.3 (27.0-33.0) pg MCHC 34.1 (31.0-36.0) g/dl RDW 13.2 (11.0-16.0) % Plt Count 211 (160-400) X10*3/uL MPV 8.9 L (9.4-12.4) fL Immature Gran % (Auto) 0.3 (0.0-0.4) % Neut % (Auto) 63.3 (45-73) % Lymph % (Auto) 24.5 (20-40) % [place] % (Auto) 11.1 H (2-11) % Eos % (Auto) 0.5 (0-4) % Baso % (Auto) 0.3 (0-2) % Lymph # (Auto) 1.6 (1.2-4.9) X10*3/uL [place] # (Auto) 0.7 (0.1-1.2) X10*3/uL Eos # (Auto) 0.0 (0.0-0.4) X10*3/uL Baso # (Auto) 0.0 (0.0-0.2) X10*3/uL Abs Immat Gran (auto) 0.02 (0.00-0.03) X10*3/uL Absolute Neuts (auto) 4.2 (2.0-8.3) x10*3/uL Absolute Nucleated RBC 0.000 (0.0-0.012) X10*3/uL Nucleated RBC % (auto) 0.0 (0.0-0.2) /100WBC Sodium 138 (135-145) mmol/L Potassium 3.6 (3.3-5.1) mmol/L Chloride 107 (96-108) mmol/L Carbon Dioxide 23 (22-29) mmol/L Anion Gap 12 (12-20) BUN 7 L (9-16) mg/dL Creatinine 0.81 (0.5-1.4) mg/dL Estim Creat Clear Calc 166.8 Estimated GFR > 60 Random Glucose 109 (60-115) mg/dL Calcium 9.5 (8.4-10.2) mg/dL Total Bilirubin 0.6 (0.0-1.0) mg/dL Direct Bilirubin 0.2 (0.0-0.5) mg/dL AST 20 (5-37) U/L ALT 34 (0-40) U/L Alkaline Phosphatase 62 (39-117) U/L Total Protein 7.6 (6.5-8.0) g/dL Albumin 4.3 (3.5-5.0) g/dL Lipase 13 (8-78) U/L Urine Color Yellow Urine Appearance Clear Urine pH 6.5 (5.0-9.0) Ur Specific [place] 1.015 (1.005-1.025) Urine Protein Trace (Neg-Trace) mg/dL Urine Glucose (UA) Negative (Negative) mg/dL Urine Ketones Negative (Negative) mg/dL Urine Blood Small (1+) H (Negative) Urine Nitrite Negative (Negative) Ur Leukocyte Esterase Negative (Negative) Urine RBC 6-10 H (0-2) /HPF Urine WBC 0-5 (0-5) /HPF Ur Squamous Epith Cells 0-2 (0-2) /HPF Urine Bacteria None Seen (None Seen) Hyaline Casts 0-2 (0-2) /LPF Prescription Management I considered prescription management with: Pain Medication Tylenol for pain. Medications Administered Generic Name Dose Route Start Last Admin Trade Name Freq PRN Reason Stop Dose Admin Sodium Chloride 1,000 mls @ 999 mls/hr 08/14/22 05:15 08/14/22 05:29 Ns IV 08/14/22 06:15 999 mls/hr .[id number] LUPE Administration Discontinued Medications Generic Name Dose Route Start Last Admin Trade Name Freq PRN Reason Stop Dose Admin Hydromorphone HCl 0.5 mg 08/14/22 05:14 08/14/22 05:26 Hydromorphone Hcl 0.5 Mg/0.5 Ml Syringe IVPUSH 08/14/22 05:15 0.5 mg ONCE ONE Administration Protocol Iohexol 100 ml 08/14/22 05:20 08/14/22 05:23 Iohexol 350 Mg/Ml 100 Ml Infus..Btl IV 08/14/22 05:21 100 ml ONCE ONE Administration Discharge Plan Discharge Clinical Impression: Diarrhea Patient Disposition: Home, Self-Care Instructions: Acute Diarrhea (ED) Referrals: Physician,Unknown J [Primary Care Provider] - 3 days
[2022-08-14] MEDS: iohexoL 350 MG/ML 100 ML INFUS..BTL IV (05:23)
[2022-08-14] MEDS: HYDROmorphone HCl 0.5 MG/0.5 ML SYRINGE IVPUSH (05:26)
[2022-08-14] MEDS: 0.9 % Sodium Chloride 1,000 ML 999 ML IV (05:29)
[2022-08-14 05:33] VITALS: BP 152/100; O2SAT 96
--- NOTE | 2022-08-14 06:03 | PC.NURSE ---
IV removed. Pt tolerated well. Discharge instructions reviewed with pt. Pt verbalizes understanding.
== END 2022-08-14 06:04 | disposition home or self-care (01) ==
PROVIDERS: Emergency Provider Emergency Medicine Emergency Medical Services
DX: R10.30 Lower abdominal pain, unspecified (principal); R19.7 Diarrhea, unspecified; Z79.899 Other long term (current) drug therapy
CPT/HCPCS: 36415; 74177; 80048; 80076; 81001; 83690; 85025; 96361; 96374; 99284; J1170; Q9967